=== PATIENT | male | born 1970 | race Caucasian/White ===

== ENCOUNTER 2017-05-27 11:33 | Day surgery (SDC) | payer OTHER ==
[2017-05-26 11:35] VITALS: BMI 27.1
[~2017-05-27 11:33] MED LIST: LACTATED RINGERS 1,000 ML IV SCH; LIDOCAINE 1% 20 ML VIAL (10MG/ML) FOR IV START INTRADERMA PRN
[2017-05-27 12:04] VITALS: RESP 16; TEMP 98.9
[2017-05-27] MEDS ORDERED: PROPOFOL 10 MG/ML 20 ML VIAL IV ONE (13:09)
[2017-05-27] MEDS ORDERED: LIDOCAINE 1% INJ 10MG/ML (20 ML MDV) ONE (13:09)
[2017-05-27 14:03] VITALS: BP 128/76; PULSE 68
--- NOTE | 2017-05-27 14:38 | P.PCN ---
Date of Procedure: 05/27/17 Procedure(s) Performed: Procedure: 1. Esophagogastroduodenoscopy and biopsy. 2. Colonoscopy and polypectomy. Preoperative diagnosis: Intermittent dysphagia and family history of colon cancer in his father. Postoperative diagnosis: 1. Mild antral gastritis. 2. Less than ideal colon preparation with a small polyp in the proximal sigmoid, snared, but no large polyps or cancer. Preparation: HalfLytely prep. Sedation: Was provided by anesthesia. Brief clinical history: The patient is a 46-year-old male who is referred for this evaluation because of intermittent difficulties with swallowing and chest pain. This happens with both solids and liquids. It is not progressive. There is no associated bleeding or weight loss. The patient also has family history of colon cancer in his father. Has no abdominal issues and this would be his first colonoscopy. Procedure: With the patient on his left lateral decubitus position and after informed consent and adequate sedation, I passed the Olympus-GIF 160 video upper endoscope through the cricopharyngeus down the esophagus. GE junction was around 42-43 cm from the incisors and there was no definite hiatal hernia. The esophagus did not show any obvious abnormalities including any erosions, ulcers, strictures or Irvin's esophagus. Occasionally during the examination , the lower esophageal sphincter was going into spasm and I would not be able to pass the endoscope through for a minute or so despite exerting some pressure. The esophagus was not dilated. The endoscope was then passed into the stomach which was insufflated with air and inspected in detail including the retroflex view in the cardia. There was some minimal mottling and erythema in the antrum but no ulcers or erosions. Pyloric channel, duodenal bulb, post bulbar area and descending duodenum appeared within normal limits. Because of his symptoms, I obtained biopsies from the duodenum, antrum and esophagus then the endoscope was withdrawn and I proceeded with the colonoscopy. Perianal area did not show any fissures or fistulas. There were no masses felt on digital rectal examination. The Olympus CFQ 160L video colonoscope was then inserted in the rectum in the usual fashion and advanced to the cecum. The preparation was less than ideal as there was some thick fecal secretions and fecal debris that I could not wash off or suction totally. The mucosa appeared healthy. There was a small polyp in the proximal sigmoid which I snared and retrieved by suction but there were no large polyps or cancer. I retroflexed the endoscope in the rectum before the endoscope was withdrawn. Low-grade internal hemorrhoids were noted with no evidence of bleeding. The patient tolerated the procedure well. Plan: I summarized the findings to the patient. If he continues to have difficulty swallowing especially if there is nutritional compromise, I am suggesting a motility study to assess for hypertonic lower esophageal sphincter or other motility disorders. Because of his less than ideal preparation of the colon and the finding of a small polyp and his family history, I am recommending repeat exam in 3 years before going with a 5-years schedule. He will follow up with you as planned and I will keep you updated on his progress.
== END 2017-05-27 14:16 | disposition home or self-care (01) ==
LOC: ORWHC2ENDO 11:33
DX: Z12.11 Encounter for screening for malignant neoplasm of colon (principal); K29.50 Unspecified chronic gastritis without bleeding; K20.0 Eosinophilic esophagitis; K63.5 Polyp of colon; K64.8 Other hemorrhoids; Z79.899 Other long term (current) drug therapy; Z80.0 Family history of malignant neoplasm of digestive organs; F17.210 Nicotine dependence, cigarettes, uncomplicated
CPT/HCPCS: 88305; 88312; 45385; 43239; J2001; J2704

== ENCOUNTER → 2021-04-16 | Outpatient (CLI) | payer OTHER ==
[2021-04-16 22:36] LABS: Basophils # (A) 0.07 X 10*3/uL (0.00-0.10); Basophils % (A) 0.6 %; Eosinophils # (A) 0.18 X 10*3/uL (0.04-0.35); Eosinophils % (A) 1.5 %; HCT 48.4 % (39.6-50.0); HGB 16.4 g/dL (13.0-17.0); Lymphocytes # (A) 3.69 X 10*3/uL (0.90-5.00); MCH 30.9 pg (27.0-32.0); MCHC 33.9 g/dL (32.0-37.0); MCV 91.3 fL (80.0-97.0); Mean Platelet Volume 10.6 fL (9.5-12.2); Monocytes # (A) 0.99 X 10*3/uL (0.20-1.00); Monocytes % (A) 8.3 %; Neutrophils # (A) 6.96 X 10*3/uL (1.80-7.70); Neutrophils % (A) 58.3 %; Platelet Count 195 X 10*3/uL (140-440); RDW 13.3 % (11.5-14.5); WBC 11.92 X 10*3/uL (4.50-10.00)
[2021-04-16 23:03] LABS: % Iron Saturation 33.33 (15.00-50.00); African American GFR (CKD) 123.5 (60.0-200.0); Albumin 4.3 g/dL (3.8-4.9); Albumin/Globulin Ratio 1.72 (1.60-3.17); Anion Gap 11.9 mmol/L (10.00-18.00); BUN/Creat Ratio 16.91 Ratio (12.00-20.00); Blood Urea Nitrogen 12.8 mg/dL (9.0-27.0); Calcium 9.5 mg/dL (8.7-10.3); Globulin 2.5 g/dL (1.6-3.3); Non-African American GFR(CKD) 106.6 (60.0-200.0); Total Bilirubin 0.3 mg/dL (0.30-1.20); Total Protein 6.9 g/dL (6.2-8.2)
== END | disposition home or self-care (01) ==
LOC: LABWHC1 14:38
PROVIDERS: ATTEND Family Medicine
DX: D64.9 Anemia, unspecified (principal); R94.5 Abnormal results of liver function studies
CPT/HCPCS: 36415; 80053; 82728; 83540; 83550; 85025

== ENCOUNTER → 2021-05-01 | Outpatient (CLI) | payer OTHER ==
--- NOTE | 2021-05-01 10:01 | US ---
EXAMINATION TYPE: US liver DATE OF EXAM: 05/01/2021 COMPARISON: NONE CLINICAL HISTORY: R94.5 Increased liver function. EXAM MEASUREMENTS: Liver Length: 20.0 cm Gallbladder Wall: 0.1 cm CBD: 0.4 cm Right Kidney: 12.4 x 6.6 x 5.3 cm Pancreas: Tail obscured by overlying bowel gas, heterogeneous texture Liver: enlarged, hyperechoic, dilated biliary radicles, ?focal fatty sparing near GB Gallbladder: No stones seen Evidence for sonographic Aden's sign: No CBD: wnl Right Kidney: No hydronephrosis or masses seen IMPRESSION: Correlate for hepatic steatosis, liver is enlarged, limited exam
== END | disposition home or self-care (01) ==
LOC: RADUSWWP 07:02
PROVIDERS: ATTEND Family Medicine
DX: R16.0 Hepatomegaly, not elsewhere classified (principal); R94.5 Abnormal results of liver function studies
CPT/HCPCS: 76705

== ENCOUNTER → 2022-02-24 | Outpatient (CLI) | payer OTHER ==
--- NOTE | 2022-02-24 12:34 | MR ---
EXAMINATION TYPE: MR knee RT wo con DATE OF EXAM: 02/24/2022 COMPARISON: Outside right knee x-ray February 11, 2022 HISTORY: Right knee pain and 2 months due to injury. TECHNIQUE: Multiplanar, multisequence images of the knee is performed without IV contrast. FINDINGS: MEDIAL MENISCUS: Triangular-shaped increased signal posterior horn likely extends to inferior articul ar surface coronal image 28 and sagittal image 10. LATERAL MENISCUS: Anterior and posterior horns are intact without tear. CRUCIATE LIGAMENTS: The anterior and posterior cruciate ligaments are intact and unremarkable. COLLATERAL LIGAMENTS: The medial collateral ligament and lateral collateral ligament complex are inta ct. Focal fluid surrounds the medial collateral ligament greatest proximal portion coronal image 22 f or reference. EXTENSOR MECHANISM: Visualized quadriceps and patellar tendons are intact. EFFUSION: No significant suprapatellar joint effusion. POPLITEAL CYST: No popliteal/chamorro cyst. TRICOMPARTMENT SPACES: Mild narrowing patellofemoral and medial tibiofemoral compartments. Mild trico mpartment spurring. CARTILAGE: No significant chondromalacia patella. Tricompartment articular cartilage fairly well-pres erved. BONE MARROW SIGNAL: No focal abnormal marrow signal is appreciated. OTHER: No additional significant abnormality is appreciated. IMPRESSION: 1. At least intrasubstance suspected full-thickness tear posterior horn medial meniscus. 2. [id number] MCL sprain injury. 3. Mild tricompartment degenerative changes as detailed above.
== END | disposition home or self-care (01) ==
LOC: RADMRIMAIN 08:08
PROVIDERS: ATTEND Orthopaedic Surgery
DX: S83.241A Other tear of medial meniscus, current injury, right knee, initial encounter (principal); M17.11 Unilateral primary osteoarthritis, right knee